=== PATIENT | female | born 1975 | race Caucasian/White ===

== ENCOUNTER 2025-01-23 09:35 | Emergency (ER) | payer OTHER ==
[~2025-01-23] VITALS: Ht 160 cm; Wt 113.4 kg
[2025-01-23 09:45] VITALS: TEMP 97.9
[2025-01-23] MEDS ORDERED: SODIUM CHLORIDE FLUSH 10 ML SYR IV PRN (10:45)
[2025-01-23 10:48] LABS: BASOPHILS % 0.4 % (0.0-1.0); EOSINOPHILS # (AUTO) 0.1 (0.0-0.4); EOSINOPHILS % 1.6 % (0.0-6.0); HEMATOCRIT 40.5 % (34.2-44.1); HEMOGLOBIN 14.1 g/dL (12.0-16.0); LYMPHOCYTES # (AUTO) 2.4 (1.0-3.2); LYMPHOCYTES % 32.7 % (18.0-39.1); MEAN CORPUSCULAR HEMOGLOBIN 29.8 pg (28-32); MEAN CORPUSCULAR HGB CONC 34.8 g/dL (31-35); MEAN CORPUSCULAR VOLUME 85.6 fL (81-99); MONOCYTES # (AUTO) 0.5 (0.2-0.8); MONOCYTES % 6.5 % (4.4-11.3); NEUTROPHILS # (AUTO) 4.3 (2.1-6.9); NEUTROPHILS % 58.3 % (38.7-80.0); PLATELET COUNT 284 x10e3/uL (140-360); RED BLOOD COUNT 4.73 x10e6/uL (3.6-5.1); WHITE BLOOD COUNT 7.36 x10e3/uL (4.8-10.8)
[2025-01-23 10:59] LABS: ALANINE AMINOTRANSFERASE 23 IU/L (0-55); ALBUMIN 3.9 g/dL (3.5-5.0); ALKALINE PHOSPHATASE 131 IU/L (40-150); BILIRUBIN,TOTAL 0.7 mg/dL (0.2-1.2); BLOOD UREA NITROGEN 12 mg/dL (7-26); BUN/CREATININE RATIO 15 (6-25); CARBON DIOXIDE 25 mmol/L (22-29); CHLORIDE 105 mmol/L (98-107); CREATININE, SERUM 0.79 mg/dL (0.57-1.11); EST GLOMERULAR FILTRATION RATE 91 ML/MIN (>=60); GLUCOSE 81 mg/dL (74-118); SODIUM 140 mmol/L (136-145); TOTAL PROTEIN 7.8 g/dL (6.5-8.1)
[2025-01-23 11:05] LABS: TROPONIN I < 0.001 ng/mL (0-0.300)
[2025-01-23] MEDS ORDERED: METOCLOPRAMIDE HCL 10 MG/2ML VIAL ONE (11:06)
[2025-01-23] MEDS: METOCLOPRAMIDE HCL 10 MG/2ML VIAL IV ONE (11:27)
[2025-01-23] MEDS: DIPHENHYDRAMINE HCL INJ 50 MG/ML VIAL IV ONE (11:27)
[2025-01-23 12:42] VITALS: PULSE 65; RESP 17; O2SAT 99
== END 2025-01-23 13:50 | disposition home or self-care (01) ==
LOC: ER 10:13
DX: R06.02 Shortness of breath (principal); R07.89 Other chest pain; R11.0 Nausea; R51.9 Headache, unspecified; E78.5 Hyperlipidemia, unspecified
CPT/HCPCS: 36415; 70450; 71046; 80053; 83880; 84484; 85025; 93005; 94760; 99284; J1200; J2765